=== PATIENT | male | born 1975 | race Hispanic/Latino ===

== ENCOUNTER 2019-01-23 10:43 | Emergency (ER) | payer SELFPAY ==
[2019-01-23] MEDS ORDERED: TETRACAINE HCL 0.5% 4 ML OPHTH SOLN ONE (10:51)
[2019-01-23] MEDS ORDERED: TETANUS/DIPHTHERIA TOXOID [ADULT] 0.5 ML VIAL IM ONE (11:05)
[2019-01-23] MEDS ORDERED: FLUORESCEIN SODIUM 1 STRIP STRIP ONE (11:41)
== END 2019-01-23 12:36 | disposition home or self-care (01) ==
LOC: EDH 10:43
DX: S05.8X2A Other injuries of left eye and orbit, initial encounter (principal); S05.8X1A Other injuries of right eye and orbit, initial encounter; X58.XXXA Exposure to other specified factors, initial encounter; Y93.89 Activity, other specified; Y92.89 Other specified places as the place of occurrence of the external cause; Y99.8 Other external cause status
CPT/HCPCS: 90471; 90714

== ENCOUNTER 2019-09-08 00:22 | Emergency (ER) | payer OTHER | END 2019-09-08 01:42 | disposition home or self-care (01) | LOC: EDH 00:22 | DX: H66.92 Otitis media, unspecified, left ear (principal); I10 Essential (primary) hypertension ==

== ENCOUNTER 2020-01-08 13:18 | Emergency (ER) | payer SELFPAY ==
[2020-01-08] MEDS ORDERED: KETOROLAC TROMETHAMINE 60 MG/2 ML VIAL ONE (14:26)
[2020-01-08 15:10] LABS: RAPID GROUP A STREP NEGATIVE (NEGATIVE)
== END 2020-01-08 15:30 | disposition home or self-care (01) ==
LOC: EDH 13:18
DX: J06.9 Acute upper respiratory infection, unspecified (principal); I10 Essential (primary) hypertension; Z72.0 Tobacco use
CPT/HCPCS: 87804 ×2; 87880; 96372; 99283; J1885

== ENCOUNTER 2021-04-16 19:10 | Emergency (ER) | payer OTHER, SELFPAY ==
[~2021-04-16] VITALS: Ht 177.8 cm; Wt 127.0 kg
[2021-04-16 19:35] VITALS: BP 136/86
[2021-04-16] MEDS ORDERED: ACET-2247 PO (19:49)
[2021-04-16] MEDS ORDERED: CYCL10 PO (19:49)
[2021-04-16] MEDS ORDERED: HYDROCODONE/ACETAMINOPHEN 10/325 MG TAB PO ONE (20:00)
[2021-04-16] MEDS ORDERED: CYCLOBENZAPRINE HCL 10 MG TABLET PO ONE (20:00)
== END 2021-04-16 20:39 | disposition home or self-care (01) ==
LOC: EDH 19:10
DX: U07.1 COVID-19 (principal); S29.011A Strain of muscle and tendon of front wall of thorax, initial encounter; J22 Unspecified acute lower respiratory infection; R10.9 Unspecified abdominal pain; E66.9 Obesity, unspecified; Z68.41 Body mass index [BMI] 40.0-44.9, adult; W18.39XA Other fall on same level, initial encounter; Y93.89 Activity, other specified; Y92.89 Other specified places as the place of occurrence of the external cause; Y99.8 Other external cause status